=== PATIENT | female | born 1970 | race Caucasian/White ===

== ENCOUNTER → 2016-09-08 | Outpatient (CLI) | payer OTHER | LOC: FIMAGING 12:14 | PROVIDERS: ATTEND Physician Assistant | DX: M51.34 Other intervertebral disc degeneration, thoracic region (principal); Z85.3 Personal history of malignant neoplasm of breast ==

== ENCOUNTER → 2016-11-14 | Outpatient (CLI) | payer OTHER ==
[~2016-11-14] MED LIST: IOPAMIDOL (ISOVUE-300) 100 ML BTL ONE
== END ==
LOC: FIMAGING 09:24
PROVIDERS: ATTEND Obstetrics & Gynecology
DX: N83.8 Other noninflammatory disorders of ovary, fallopian tube and broad ligament (principal); N83.201 Unspecified ovarian cyst, right side; N85.2 Hypertrophy of uterus; D25.9 Leiomyoma of uterus, unspecified; Z90.11 Acquired absence of right breast and nipple; Z90.12 Acquired absence of left breast and nipple; Z85.3 Personal history of malignant neoplasm of breast
CPT/HCPCS: Q9967

== ENCOUNTER 2016-11-20 10:16 | Day surgery (SDC) | payer OTHER ==
[2016-11-20] MEDS ORDERED: LR 1,000 ML IV ONE (10:35)
[2016-11-20 10:56] VITALS: PULSE 84
--- NOTE | 2016-11-20 11:35 | PDANEPAE ---
ANE History of Present Illness R/O colon ca ANE Past Medical History - Cardiovascular History Hx Hypertension: No Hx Arrhythmias: No Hx Chest Pain: No Hx Coronary Artery / Peripheral Vascular Disease: No Hx CHF / Valvular Disease: No Hx Palpitations: No - Pulmonary History Hx COPD: No Hx Asthma/Reactive Airway Disease: No Hx Recent Upper Respiratory Infection: No Hx Oxygen in Use at Home: No Hx Sleep Apnea: No Sleep Apnea Screening Result - Last Documented: Negative - Neurologic History Hx Cerebrovascular Accident: No Hx Seizures: No Hx Dementia: No - Endocrine History Hx Diabetes: Yes Endocrine History Comment: LOW THYROID - Renal History Hx Renal Disorders: No - Liver History Hx Hepatic Disorders: No - Neurological & Psychiatric Hx Hx Neurological and Psychiatric Disorders: No - Cancer History Hx Cancer: Yes Cancer History Comment: BREAST CA - Congenital Disorder History Hx Congenital Disorders: No - GI History Hx Gastrointestinal Disorders: No - Other Health History Other Health History: NEG - Chronic Pain History Chronic Pain: No - Surgical History Prior Surgeries: MASTECTOMY TARA. RECONSTRUCTIVE X3. SHOULDER R ANE Review of Systems - Exercise capacity METS (RN): 5 METS ANE Patient History - Allergies Allergies/Adverse Reactions: No Known Allergies Allergy (Unverified 06/11/09 20:48) - Home Medications Home Medications: Herbals/Supplements -Info Only 11/18/16 [Last Taken Unknown] - NPO status NPO Since - Liquids (Date): 11/20/16 NPO Since - Liquids (Time): 09:45 NPO Since - Solids (Date): 11/19/16 NPO Since - Solids (Time): 07:30 - Smoking Hx Smoking Status: Never smoked - Family Anes Hx Family Hx Anesthesia Complications: NEG ANE Labs/Vital Signs - Vital Signs Blood Pressure: 131/74 Heart Rate: 84 Respiratory Rate: 13 O2 Sat (%): 97 Height: 162.56 cm Weight: 56.245 kg ANE Physical Exam - Airway Neck exam: FROM Mallampati Score: Class 1 Mouth exam: normal dental/mouth exam - Pulmonary Pulmonary: no respiratory distress - Cardiovascular Cardiovascular: regular rate and rhythym - ASA Status ASA Status: I ANE Anesthesia Plan Anesthesia Plan: MAC
[2016-11-20] MEDS ORDERED: MIDAZOLAM 2 MG/2 ML VIAL IVP ONE (11:36)
[2016-11-20] MEDS ORDERED: LIDOCAINE 2% 5 ML SDV ONE (11:40)
[2016-11-20] MEDS ORDERED: PROPOFOL/EMULSION 500 MG/50 ML BOTTLE IV ONE (11:40)
[2016-11-20] MEDS ORDERED: INDOMETHACIN 50 MG SUPP PR PRN (12:38)
--- NOTE | 2016-11-20 12:38 | PDGENHP ---
History & Physical Chief Complaint: epigastric abdominal pain, family history of cancer History of Present Illness: 46 year old female with a family history of cancers , presents for evaluatio of abnormal imaging and epigastric abdominal pain. Pertinent Past, Social, Family History: PMHx: Breast cancer, hypothyroid. SoHx : No cigs. FaMHx: extensive list of cancers Relevant Physical Exam: HEENT: anicteric sclera. CV: RRR + s1s2. Lungs CTAB. Abd: soft, nt, + bs. No g/r/ Cardiorespiratory Assessment: asa 2
[2016-11-20] MEDS ORDERED: fentaNYL 100 MCG/2 ML INJ IVP PRN (12:41)
[2016-11-20] MEDS ORDERED: ONDANSETRON 4 MG/2 ML VIAL IVP PRN (12:41)
[2016-11-20] MEDS ORDERED: NALOXONE HCL 0.4 MG/ML INJ IVP PRN (12:41)
--- NOTE | 2016-11-20 12:41 | POSTOPPROG ---
Post Op Note Date of Operation: 11/20/16 Surgeon: Andrea Dacosta Anesthesia: IV Sedation Pre-op Diagnosis: epigstric pain, abnormal imaging Post-op Diagnosis: + gastritis, nl colon Indication: epi pain, abnormal imaging Procedure: EGd with bx, colonoscopy Findings: gastritis, hh Inf/Abcess present in the surg proc area at time of surgery?: No
--- NOTE | 2016-11-20 12:42 | POSTANESTH ---
Post Anesthetic Evaluation Cardiovascular Status: Normal, Stable Respiratory Status: Normal, Stable Level of Consciousness/Mental Status: Can Participate in Eval Pain Control: Adequate, Prn Tx Ordered Nausea/Vomiting Control: Adequate, Prn Tx Ordered Complications Possibly Related to Anesthesia: None Noted
[2016-11-20] MEDS ORDERED: NS 500 ML IV SCH (12:45)
[2016-11-20 12:47] VITALS: TEMP 97.7; O2SAT 100
[2016-11-20 13:14] VITALS: RESP 15
[2016-11-20 13:39] VITALS: BP 121/69
--- NOTE | 2016-11-20 22:43 | GPN ---
[f rep st] PROCEDURE NOTE DATE OF PROCEDURE: 11/20/2016 PROCEDURE PERFORMED: Esophagogastroduodenoscopy with biopsy. OPERATIVE INDICATIONS: Ms. Burris is a 46-year-old female, who presents for evaluation of epigastric abdominal pain. CONSENT: Risks, benefits, and alternatives of the procedure were discussed in great detail with the patient. Risks of infection, bleeding, perforation, and sedation were discussed. All questions were answered. Informed consent was obtained. MEDICATIONS: Propofol. Please see Anesthesiology record for details. ESTIMATED BLOOD LOSS: Insignificant. DESCRIPTION OF PROCEDURE: The Olympus upper endoscope was inserted into the mouth and advanced to the esophagus. The proximal, mid and distal esophagus were normal in appearance. The stomach was entered and closely examined, including retroflexed views of angularis, cardia and fundus. A small hiatal hernia was visualized. The mucosa in the antrum and the body of the stomach were erythematous in a patchy distribution and biopsies were taken. The duodenal bulb and second portion of the duodenum was normal in appearance. IMPRESSION: 1. Gastritis, status post biopsy. 2. Small hiatal hernia. 3. No etiology of symptoms seen. RECOMMENDATIONS: 1. Follow up on biopsy results. 2. Proceed with colonoscopy. /[id number]/MODL MTDD
--- NOTE | 2016-11-20 22:48 | GPN ---
[f rep st] PROCEDURE NOTE DATE OF PROCEDURE: 11/20/2016 PROCEDURE: Colonoscopy. INDICATION: The patient is a 46-year-old female, with an extensive family history of multiple cancers, who presents for evaluation of abnormal imaging. CONSENT: Risks, benefits, and alternatives of the procedure were discussed in great detail with the patient. Risks of infection, bleeding, perforation, and sedation were discussed. All questions answered. Informed consent was obtained. MEDICATIONS: Propofol. Please see Anesthesia record for details. ESTIMATED BLOOD LOSS: Insignificant. COLONOSCOPIC EVALUATION: A rectal exam was performed and no palpable masses were appreciated. The Olympus adult colonoscope was inserted into the rectum and advanced to cecum where the ileocecal valve and appendiceal orifice were seen. Fleeting views of the terminal ileum were visualized and no gross lesion noted. No mass or polyps were noted. IMPRESSION: Normal colonoscopy. RECOMMENDATIONS: Repeat colonoscopy in 5 years. /[id number]/MODL MTDD
== END 2016-11-20 14:00 | disposition home or self-care (01) ==
LOC: FSGY 10:16
PROVIDERS: ATTEND Internal Medicine Gastroenterology
PROC: 0DB68ZX Excision of Stomach, Via Natural or Artificial Opening Endoscopic, Diagnostic (ICD-10-PCS; principal; 2016-11-20 11:30)
PROC: 0DJD8ZZ Inspection of Lower Intestinal Tract, Via Natural or Artificial Opening Endoscopic (ICD-10-PCS; principal; 2016-11-20 11:30)
DX: R10.13 Epigastric pain (principal); R93.8 Abnormal findings on diagnostic imaging of other specified body structures; E03.9 Hypothyroidism, unspecified; K44.9 Diaphragmatic hernia without obstruction or gangrene; Z85.3 Personal history of malignant neoplasm of breast; Z80.9 Family history of malignant neoplasm, unspecified
CPT/HCPCS: J2250; J2704

== ENCOUNTER → 2017-01-22 | Outpatient (CLI) | payer OTHER | LOC: EDSTATUS 11:35 → FIMAGING 12:50 → FLAB 12:50 | PROVIDERS: ATTEND Surgery | DX: Z48.812 Encounter for surgical aftercare following surgery on the circulatory system (principal) ==

== ENCOUNTER → 2017-06-12 | Outpatient (CLI) | payer OTHER | LOC: FIMAGING 10:15 | PROVIDERS: ATTEND Internal Medicine Hematology & Oncology | DX: Z13.820 Encounter for screening for osteoporosis (principal); M85.89 Other specified disorders of bone density and structure, multiple sites; C50.412 Malignant neoplasm of upper-outer quadrant of left female breast ==

== ENCOUNTER 2018-06-12 13:12 | Observation (INO) | payer OTHER ==
[2018-06-12] MEDS ORDERED: NS 1,000 ML IV ONE ×2 (13:35→15:44)
--- NOTE | 2018-06-12 13:37 | EDPHY ---
H & P Smoking Status: Never smoked Time Seen by Provider: 06/12/18 13:20 HPI/ROS: CHIEF COMPLAINT: Abdominal pain HISTORY OF PRESENT ILLNESS: History of metastatic breast cancer including bilateral oophorectomy for metastases. Started with abdominal pain in her umbilical region on Wednesday and Wednesday and then on Wednesday and was pretty much gone. Wednesday afternoon she had her latest cancer therapy infusion. At 4:00 a.m. On this past Wednesday pain got worse and yesterday at dinner it was worse with trying to eat or drink soup for dinner. Last night when she rolled over in bed every time she changed position it was worse. She presents today with continued worsening severe pain. Not associated with vomiting or diarrhea, decreased stool output. No fever or chills and no recent injury or trauma. REVIEW OF SYSTEMS: Eye: no change in vision ENT: no sore throat Cardiac: no chest pain or syncope Pulmonary: no cough or SOB Abdomen: HPI Musculoskeletal: no back pain Skin: no rash Neuro: no headache Constitutional: no fever : no urinary symptoms A comprehensive 10 point review of systems is otherwise negative aside from elements mentioned in the history of present illness. PAST MEDICAL HISTORY: Metastatic breast cancer, bilateral oophorectomy, mastectomy, hypothyroid Social history: Nonsmoker General Appearance: Alert and conversant, cooperative. Eyes: No scleral icterus. ENT, Mouth: Slightly dry mucous membranes. Respiratory: Normal respiratory effort, breath sounds equal, lungs are clear to auscultation. Cardiovascular: Regular rate and rhythm. Gastrointestinal: Bilateral lower abdominal tenderness right greater than left. Neurological: Alert, face symmetric, normal motor and sensory in extremities. Skin: Warm and dry, no rashes. Musculoskeletal: No peripheral edema. Psychiatric: Not agitated. Emergency Department course/MDM: Differential includes but not limited to bowel obstruction, cancer related, appendicitis, uterine. 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 CT scanning discussed and consented. Declined pain medication initially 1450: CT per Dr. Salvador shows thickened sigmoid as well as 8 mm appendix with debris, possible appendicitis. Patient is requesting Dr. Walters if he is available as he has been her surgeon in the past, discussed with Romeo at 1457 will see in ED. (Saman Mckeon) Constitutional: Initial Vital Signs Temperature (C) 36.8 C 06/12/18 13:16 Heart Rate 90 02/10/19 13:16 Respiratory Rate 16 06/12/18 13:16 Blood Pressure 120/87 H 06/12/18 13:16 O2 Sat (%) 97 06/12/18 13:16 O2 Delivery Mode Room Air Allergies/Adverse Reactions: No Known Allergies Allergy (Verified 06/12/18 18:04) Home Medications: Medication Instructions Recorded Herbals/Supplements -Info Only 1 ea PO DAILY #0 11/18/16 Exemestane [Aromasin] 25 mg PO DAILY 06/12/18 Fluorometholone [Fml Forte] 1 drop OP QID 06/12/18 Thyroid,Pork [Gaston Thyroid] 30 mg PO DAILY 06/12/18 Amoxicillin/Clavulanate Pot 875 mg PO BID #10 tab 06/13/18 [Augmentin 875 MG TAB (*)] Meloxicam 7.5 mg PO DAILY #30 tablet 06/13/18 Medical Decision Making - Diagnostics Imaging: Discussed imaging studies w/ call center team leader Radiologist ED Course/Re-evaluation: 5:15 p.m., the patient was seen and evaluated by Dr. Walters who reviewed CT imaging. Dr. Walters does not feel the patient has an appendicitis. However, Dr. Waltesr will admit the patient for pain control and observation overnight. ( Pato Huang) - Data Points Laboratory Results: Laboratory Results 06/12/18 13:45 06/12/18 13:45 Medications Given: Discontinued Medications Exemestane (Aromasin) 25 mg PO DAILY [facility] Stop: 12/10/18 08:59 Last Admin: 06/13/18 09:11 Dose: 25 mg Fluorometholone (Fml) 1 drop OP QID ROSA MARIA Stop: 12/09/18 20:59 Last Admin: 06/13/18 05:23 Dose: Not Given Sodium Chloride (Ns) 1,000 mls @ 0 mls/hr IV EDNOW ONE; Wide Open PRN Reason: Protocol Stop: 06/12/18 13:36 Last Admin: 06/12/18 14:37 Dose: 1,000 mls Sodium Chloride (Ns) 1,000 mls @ 0 mls/hr IV ONCE ONE; Wide Open PRN Reason: Protocol Stop: 06/12/18 15:45 Last Admin: 06/12/18 15:46 Dose: 1,000 mls Cefoxitin Sodium 1 gm/ Sodium (Chloride) 50 mls @ 200 mls/hr IV EDNOW ONE PRN Reason: Protocol Stop: 06/12/18 18:24 Last Admin: 06/12/18 19:08 Dose: 50 mls Cefoxitin Sodium 1 gm/ Sodium (Chloride) 50 mls @ 200 mls/hr IV Q6H ORSA MARIA PRN Reason: Protocol Stop: 07/13/18 00:59 Last Admin: 06/13/18 07:14 Dose: 50 mls Potassium Chloride/Dextrose/Sod Cl (D5w 1/2 Ns W/ 20 Kcl/L) 1,000 mls @ 100 mls /hr IV CONT ROSA MARIA Stop: 12/09/18 18:14 Last Admin: 06/13/18 05:23 Dose: 1,000 mls Potassium Chloride (Potassium Cl 10 Meq (Premix)) 100 mls @ 100 mls/hr IV Q1H ROSA MARIA Stop: 06/12/18 22:29 Last Admin: 06/12/18 23:42 Dose: 100 mls Ketorolac Tromethamine (Toradol) 30 mg IVP EDNOW ONE Stop: 06/12/18 16:55 Last Admin: 06/12/18 16:58 Dose: 30 mg Ketorolac Tromethamine (Toradol) 15 mg IVP Q6HRS ROSA MARIA Stop: 06/18/18 00:00 Last Admin: 06/13/18 05:24 Dose: 15 mg Point of Care Test Results: Chemistry 06/12/18 13:50 POC Sodium 140 mEq/L mEq/L (135-145) POC Potassium 3.3 mEq/L mEq/L (3.3-5.0) POC Chloride 100 mEq/L mEq/L (97-110) POC Total CO2 24 mEq/L mEq/L (22-31) POC BUN 14 mg/dL mg/dL (7-23) POC Creatinine 0.6 mg/dL mg/dL (0.6-1.0) POC Glucose 96 mg/dL mg/dL (70-100) ISTAT H&H 06/12/18 13:50 POC Hgb 14.3 gm/dL gm/dL (12.6-16.3) POC Hct 42 % % (38-47) Departure - Departure Disposition: [facility] Acute Clinical Impression: Abdominal pain Qualifiers: Abdominal location: lower abdomen, unspecified Qualified Code(s): R10.30 - Lower abdominal pain, unspecified Condition: Fair
[2018-06-12] MEDS ORDERED: IOHEXOL 300 mgI/ML (OMNIPAQUE) 150 ML BTL IV ONE (13:56)
[2018-06-12 14:09] LABS: PLATELET COUNT 60 10^3/uL (150-400)
[2018-06-12] MEDS ORDERED: KETOROLAC 30 MG/1 ML SDV IVP ONE (16:54)
[2018-06-12] MEDS ORDERED: ONDANSETRON 4 MG/2 ML VIAL IVP PRN (18:08)
[2018-06-12] MEDS ORDERED: LORazepam 2 MG/ML INJ IVP PRN (18:08)
[2018-06-12] MEDS ORDERED: HYDROmorphONE/DILAUDID 1 MG/ML INJ IVP PRN (18:08)
[2018-06-12] MEDS ORDERED: HYDROCODONE/APAP 5/325 TAB PO PRN (18:08)
[2018-06-12] MEDS ORDERED: cefOXitin SODIUM 1 GM in NS 50 ML IV ONE (18:10)
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
[2018-06-12] MEDS: POTASSIUM Cl (KCl) 100 ML IV SCH ×4 (19:57→23:42)
[2018-06-12] MEDS: D5W 1/2 NS W/ 20 KCl/L 1,000 ML IV SCH (19:58)
[2018-06-12] MEDS: FLUOROMETHOLONE 5 ML OPHT.BTL OP SCH (19:58)
--- NOTE | 2018-06-12 20:14 | GHP ---
[f rep st] HISTORY AND PHYSICAL DATE OF ADMISSION: 06/12/2018 REASON FOR CONSULTATION: History of metastatic breast cancer with increasing abdominal pain. The patient is a very pleasant 48-year-old female with history of metastatic breast cancer who is now admitted with increasing abdominal pain. Her oncology history dates back to October of 2010, when she was diagnosed with a stage IIIC (T2p N3C M0) invasive lobular carcinoma of the left breast. The tumo r was ER DE positive and HER2 negative. She underwent neoadjuvant chemotherapy with dose dense AC Ta xol followed by mastectomy with axillary node dissection. Pathology showed a 1.2 cm lobular carcinom a with 12 of 20 lymph nodes involved. She underwent PMRT and started on tamoxifen in June. She regained ovarian function, and a trial of Lupron was attempted, but she tolerated that poorly . In the spring, she discontinued the tamoxifen due to side effects. At that time, she was found to have a cystic mass in her right pelvis. CT scan showed bilateral enlargement of the ovaries with a 4.5 cm mass arising from the right ovary. There was free peritoneal fluid. PET-CT demonstra latrell the pelvic mass to be PET avid with a 2 cm precaval node. She underwent surgery with gynecologic oncologist in October of 2016, Dr. Beckwith. She was found to have extensive tumor in the pelvis with c arcinomatosis. She had a cecal mesenteric mass. She underwent bilateral salpingo-oophorectomy. Pat hology was felt to be consistent with metastatic breast cancer of the lobular type ER and DE were bot h strongly positive. HER2 was 2+ and was positive by FISH in 1 part of the tumor and negative by FIS H and another area of the tumor. She initially was treated with Taxotere, Herceptin, and pertuzumab, and started on Herceptin and pertuzumab maintenance March 2017. By July of 2017, she had progre ssive disease based on rising tumor marker, and was started on a clinical trial at [facility] with Dr. Miller with letrozole, palbociclib, and tucatinib. She was found to have progressive disease in of this year based on CT findings and a PET-CT that showed new PET avid bilateral iliac chain lym ph nodes in the lower abdomen and pelvis. The most dominant lesion was in the right external iliac c inna, measuring 2.9 x 1.7 cm. There were new PET avid right common iliac chain nodes and a new right PET avid common iliac node. In addition, there were left pelvic nodes as well. No bony lesions wer e identified. She started on Aromasin in May and received her first dose of Kadcyla on June 07. B ecause of increasing right groin pain over the right pelvic lymph node, there was some consideration of either radiation or surgical resection to palliate symptoms. She met both with Dr. Lee, who di d not recommend radiation, and met with a surgeon at [facility], Dr. Jansen. Surgery was recommended only to address pain and over the course of the last week, the patient had decreasing pain in the rig ht groin. She was tentatively scheduled for surgical resection of the lymph node tomorrow, but had c anceled it due to decreased symptoms in that area. She received her 1st dose of Kadcyla 1 week ago. She started having abdominal cramping prior to the administration of the chemo. She has not had any vomiting. She has had bowel movements. She has gallagher d anorexia. She has had significant abdominal cramping, which she describes as spasms. She has not had any fevers or chills. She was referred to the emergency room today due to increasing abdominal p ain. PAST MEDICAL HISTORY: Infertility with numerous prior cycles of in vitro fertilization. 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 PAST SURGICAL HISTORY: Bilateral mastectomies with axillary node dissection, bilateral salpingo-ooph orectomy. FAMILY HISTORY: Paternal grandmother had breast cancer. Her father had stage IV lung cancer. A pat ernal uncle had prostate cancer. Her mother of metastatic ocular melanoma. There is no family history of ovarian cancer. SOCIAL HISTORY: She is . She has 1 son who is now 11. REVIEW OF SYSTEMS: 10-point review of systems is negative other than noted in HPI. PHYSICAL EXAM: GENERAL: She is relatively comfortable appearing, lying on a gurney. VITAL SIGNS: Blood pressure 119/75, heart rate 69, O2 sat 97%. She is afebrile. HEENT: Pupils equal. Sclerae a nicteric. Oropharynx clear. LUNGS: Clear to auscultation. HEART: Regular rate. ABDOMEN: Hypera ctive bowel sounds. Soft, no focal tenderness in the right lower quadrant. The right groin lymph no de is easily palpable, but not tender. She is tender to palpation in the mid abdomen bilaterally. T here is no rebound. EXTREMITIES: No edema. IMAGING: Abdominal CT shows a mildly distended appendix with adjacent inflammatory change. There is perihepatic and pericholecystic fluid with some mild adjacent inflammatory change in the hepatic fle xure of the colon. Minimal right pleural effusion. LABORATORY DATA: White blood cell count 4.5, hematocrit 42, platelets 60,000, absolute neutrophil co unt 2.5. IMPRESSION: This is a 48-year-old female with a history of stage IIIC lobular carcinoma, diagnosed w ith metastatic recurrence in December of 2016. The initial tumor was ER positive, HER2 negative, and t he abdominal recurrence was ER positive, both with HER2 positive and HER2 negative components. She w as initially treated with Taxotere, Herceptin, Perjeta, and then more recently was on a clinical tria l from June 2017 to May 2018 with letrozole, palbociclib, and oral HER2 agent tucatinib. She was found to have progressive disease last month and is currently day 7, cycle 1 of Kadcyla. She pr esents with increasing abdominal symptoms, and CT scan shows evidence of new perihepatic and perichol ecystic fluid, and some suggestion of inflammatory changes in the appendix. Also of note, she has so me inflammatory changes in the area of the hepatic flexure. Her exam is notable for not having focal tenderness in the right lower quadrant. She is afebrile. She does not have an elevated white count , albeit, she is currently day 7 of chemotherapy. She has a mild thrombocytopenia. There are no sig ns of obstruction. For now, the patient will be admitted for observation. She will be hydrated and started empirically on antibiotics. 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 It is too early at this point to say that she is resistant to her most recen t treatment. We will continue to follow along with you signed. /[id number]/MODL
[2018-06-12] MEDS: KETOROLAC 15 MG/1 ML SDV IVP SCH (23:41)
[2018-06-13] MEDS: cefOXitin SODIUM 1 GM in NS 50 ML IV SCH ×2 (01:17→07:14)
[2018-06-13] MEDS: FLUOROMETHOLONE 5 ML OPHT.BTL OP SCH (05:23)
[2018-06-13] MEDS: D5W 1/2 NS W/ 20 KCl/L 1,000 ML IV SCH (05:23)
[2018-06-13] MEDS: KETOROLAC 15 MG/1 ML SDV IVP SCH (05:24)
--- NOTE | 2018-06-13 08:45 | SOAPPROG ---
SOAP Progress Note Assessment/Plan: Assessment:better night. pain overall improved. no nausea. + appetite. AVSS. comfortable. abd markedly less tender. abd pain - etiology? neutropenic colits, less likely primary appy (?periappendicitis secondary to above or carcinomatosis still a possibility) vs carcinomatosis. WBC 3/plt 80 today. will plan for DC to home later today with PO ABX course and meloxicam. patient pleased with her progress and in agreement. will see back in office in 1 week unless pain worsens Plan: 06/13/18 08:42 Objective: Vital Signs Temp Pulse Resp BP Pulse Ox 37.0 C 70 16 103/66 94 06/13/18 02:56 06/13/18 02:56 06/13/18 02:56 06/13/18 02:56 06/13/18 02:56 Laboratory Results 06/13/18 08:15 06/12/18 06/13/18 06/14/18 05:59 05:59 05:59 Intake Total 3285 Balance 3285 ICD10 Worksheet Patient Problems: Problems Problem Status Onset Abdominal pain Acute
[2018-06-13 08:46] VITALS: BP 115/75
[2018-06-13] MEDS ORDERED: EXEMESTANE 25 MG TAB PO SCH (09:00)
--- NOTE | 2018-06-13 10:35 | SOAPPROG ---
SOZI Progress Note Assessment/Plan: Assessment: 1) Metastatic breast cancer 2) Metastatic involvement of pelvic lymph nodes 3) Abdominal pain of unclear etiology 4) Inflammatory abdominal changes seen on CT Plan: Her pain has improved significantly without intervention. She wants to go home. I have discussed her case with Dr. Walters, who is also comfortable with d/c today. Etiology of her pain remains somewhat unclear. She has no evidence of obstruction on CT, and no obstructive symptoms. It is possible she has early carcinomatosis. Will arrange outpatient follow up at [facility] later this week. 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 Plan to continue TDM1 treatment per her primary Oncologist, Dr. Cole. Plan d/w patient. Her questions were answered. 06/13/18 10:30 06/13/18 10:31 Subjective: Pain better. Denies nausea. Continues to move bowels. Feels ok enough to go home. Objective: Vital Signs Temp Pulse Resp BP Pulse Ox 36.4 C 73 16 115/75 96 06/13/18 08:00 06/13/18 08:00 06/13/18 08:00 06/13/18 08:00 06/13/18 08:00 Laboratory Results 06/13/18 08:15 06/13/18 09:15 06/12/18 06/13/18 06/14/18 05:59 05:59 05:59 Intake Total 3285 Balance 3285 - Time Spent With Patient Time Spent With Patient: 25 minutes Physical Exam - Physical Exam General Appearance: alert, no apparent distress EENT: PERRL/EOMI Abdomen: normal bowel sounds, non-tender, soft Neuro/Psych: alert, normal mood/affect ICD10 Worksheet Patient Problems: Problems Problem Status Onset Abdominal pain Acute
--- NOTE | 2018-06-13 15:18 | ASMTLACE ---
LACE Length of stay for Answers: 2 days current admission Acuity / Level of Answers: No Care: Did the patient have an inpatient admission? Comorbidities - select Answers: Any tumor (including all that apply lymphoma or leukemia) Other Notes: Hypothyroid # of Emergency department Answers: 1-2 visits in the last 6 months Score: 6 Date Signed: 06/13/2018 03:18 PM Electronically Signed By:NATALI Alcazar
--- NOTE | 2018-06-13 15:20 | ASMTCMCOM ---
CM Note CM Note Notes: Pt with breast CA in for abd pain. No therapies ordered. Pt medically stable for d/c, no CM d/c needs identified. Pt will d/c on oral antibiotics, will f/u at [facility] later this week. Date Signed: 06/13/2018 03:19 PM Electronically Signed By:NATALI Alcazar
== END 2018-06-13 11:05 | disposition home or self-care (01) ==
LOC: F3E 19:31
PROVIDERS: ADMIT Surgery; ATTEND Surgery
DX: R10.31 Right lower quadrant pain (principal); C78.6 Secondary malignant neoplasm of retroperitoneum and peritoneum; R93.89 Abnormal findings on diagnostic imaging of other specified body structures; E86.9 Volume depletion, unspecified; E87.6 Hypokalemia; E03.9 Hypothyroidism, unspecified; D69.6 Thrombocytopenia, unspecified; Z85.3 Personal history of malignant neoplasm of breast; Z92.21 Personal history of antineoplastic chemotherapy; Z90.722 Acquired absence of ovaries, bilateral; Z90.13 Acquired absence of bilateral breasts and nipples
CPT/HCPCS: 74177; 96361; 96365; 96375; 96376; 99285; G0378; 82435-PO; 82565-PO; 82947-PO; 84132-PO; 84295-PO; 84520-PO; 85014-ER; J0694; J1885; J3480; Q9967

== ENCOUNTER 2018-06-23 21:23 | Inpatient (IN) | payer OTHER ==
[2018-06-23] MEDS ORDERED: ONDANSETRON 4 MG/2 ML VIAL IVP ONE (21:39)
[2018-06-23] MEDS ORDERED: IOPAMIDOL (ISOVUE-300) 100 ML BTL ONE (21:42)
--- NOTE | 2018-06-23 22:20 | EDPHY ---
H & P Stated Complaint: Mid abd pain, Ca pt, seen 2 weeks ago for same thing, worsening pain Time Seen by Provider: 06/23/18 21:40 HPI/ROS: HPI The patient presents with worsening abdominal pain over the last 2 days. She has a history of metastatic breast cancer, currently on chemotherapy, with known carcinomatosis. She was admitted from June 12 to with abdominal pain of uncertain origin though likely related to neutropenic colitis given she improved with IV fluids and antibiotics. She had been doing well at home up until yesterday when she had mild pain in her right lower quadrant. It was present again today when she saw Dr. Walters in the clinic. However at about 4 to 6:00 p.m. the pain became much much worse. It was located in her upper abdomen and achy in nature. At about 7:15 p.m. She was able to eat dinner, however the pain became worse after this and she developed nausea. The pain is now quite severe. REVIEW OF SYSTEMS 10 systems were reviewed and negative with the exception of the elements mentioned in the history of present illness. PMHx: Metastatic breast cancer, known carcinomatosis Soc Hx: Here with her PHYSICAL General Appearance: Alert, no distress Eyes: Pupils equal and round no pallor or injection ENT, Mouth: Mucous membranes moist Respiratory: There are no retractions, lungs are clear to auscultation Cardiovascular: Regular rate and rhythm Gastrointestinal: Abdomen is mildly distended, tenderness in all quadrants most prominently in right upper and left upper,, no masses, bowel sounds diminished, there is a maculopapular erythematous rash throughout her abdomen Neurological: A&O, moves all extremities Skin: Warm and dry, no rashes Musculoskeletal: Neck is supple non tender Extremities: symmetrical, full range of motion Psychiatric: Patient is oriented X 3, there is no agitation Source: Patient, Old records Exam Limitations: No limitations - Personal History LMP (Females 10-55): Hysterectomy Current Tetanus Diphtheria and Acellular Pertussis (TDAP): Yes Tetanus Vaccine Date: 2007 - Medical/Surgical History Hx Asthma: No Hx Chronic Respiratory Disease: No Hx Diabetes: No Hx Cardiac Disease: No Hx Renal Disease: No Hx Cirrhosis: No Hx Alcoholism: No Hx HIV/AIDS: No Hx Splenectomy or Spleen Trauma: No Other PMH: breast CA, hypothyroid, double mastectomy, oopherectomy - Social History Smoking Status: Never smoked Constitutional: Initial Vital Signs Temperature (C) 36.9 C 06/23/18 21:31 Heart Rate 84 06/23/18 21:31 Respiratory Rate 17 06/23/18 21:31 Blood Pressure 123/89 H 06/23/18 21:31 O2 Sat (%) 97 06/23/18 21:31 O2 Delivery Mode Room Air Allergies/Adverse Reactions: No Known Allergies Allergy (Verified 06/23/18 21:30) Home Medications: Medication Instructions Recorded Herbals/Supplements -Info Only 1 ea PO DAILY #0 11/18/16 Exemestane [Aromasin] 25 mg PO DAILY 06/12/18 Fluorometholone [Fml Forte] 1 drop OP QID 06/12/18 Thyroid,Pork [Coulter Thyroid] 30 mg PO DAILY 06/12/18 Medical Decision Making - Diagnostics Imaging Results: Imaging Impressions Abdomen CT 06/23/18 21:40 Impression: 1. Interval development of abnormal fluid-distended loops of small bowel in the caudal pelvis, with one of the loops demonstrating a moderate amount of submucosal edema and associated with some interloop fluid, as well as mesenteric edema. The possibility of an early obstructive process associated with an internal hernia is mentioned. 2. Right external iliac lymphadenopathy. 3. Moderate constipation. 4. Fluid-distended stomach. The patient may benefit from placement of an NG tube. Findings were discussed with Zach Walters M.D., who will discuss this further with Anita Herr MD at 22:49, on 06/23/2018. Differential Diagnosis: This is a 48-year-old female with known metastatic breast cancer with carcinomatosis, recent admit for abdominal pain thought to be neutropenic colitis given improvement with IV fluids and antibiotics, who now presents with worsening abdominal pain over the last 2 days. Here, patient is given IV fluids, Zofran, Toradol. Labs were checked. CT scan of abdomen pelvis was ordered. I discussed the case with Dr. Walters who had reviewed the patient's CT scan with Dr. Mendenhall. Patient appears to have a partial small-bowel obstruction, cause unclear. He recommends 18 Jordanian NG tube, IV fluids, admission to the hospital. I have ordered a hospital bed for the patient. I have given her a dose of fentanyl for pain. And I have explained the diagnosis and treatment plan to the patient. She would like not to have a KUB to confirm NG tube placement because of the multiple x-rays she is had. I feel this is reasonable. - Data Points Laboratory Results: 06/23/18 21:59 POC Hgb 16.0 gm/dL gm/dL (12.6-16.3) POC Hct 47 % % (38-47) POC Sodium 141 mEq/L mEq/L (135-145) POC Potassium 3.5 mEq/L mEq/L (3.3-5.0) POC Chloride 101 mEq/L mEq/L (97-110) POC Total CO2 28 mEq/L mEq/L (22-31) POC BUN 18 mg/dL mg/dL (7-23) POC Creatinine 0.7 mg/dL mg/dL (0.6-1.0) POC Glucose 87 mg/dL mg/dL (70-100) Medications Given: Discontinued Medications Fentanyl (Sublimaze) 50 mcg IVP EDNOW ONE Stop: 06/23/18 22:50 Last Admin: 06/23/18 22:54 Dose: 50 mcg Sodium Chloride (Ns) 1,000 mls @ 0 mls/hr IV EDNOW ONE; Wide Open PRN Reason: Protocol Stop: 06/23/18 22:26 Last Admin: 06/23/18 22:29 Dose: 1,000 mls Ketorolac Tromethamine (Toradol) 15 mg IVP EDNOW ONE Stop: 06/23/18 22:26 Last Admin: 06/23/18 22:29 Dose: 15 mg Ondansetron HCl (Zofran) 4 mg IVP EDNOW ONE Stop: 06/23/18 21:40 Last Admin: 06/23/18 21:59 Dose: 4 mg Point of Care Test Results: Chemistry 06/23/18 21:59 POC Sodium 141 mEq/L mEq/L (135-145) POC Potassium 3.5 mEq/L mEq/L (3.3-5.0) POC Chloride 101 mEq/L mEq/L (97-110) POC Total CO2 28 mEq/L mEq/L (22-31) POC BUN 18 mg/dL mg/dL (7-23) POC Creatinine 0.7 mg/dL mg/dL (0.6-1.0) POC Glucose 87 mg/dL mg/dL (70-100) ISTAT H&H 06/23/18 21:59 POC Hgb 16.0 gm/dL gm/dL (12.6-16.3) POC Hct 47 % % (38-47) Departure - Departure Disposition: [facility] Inpatient Acute Clinical Impression: Acute distention of stomach, Metastatic breast cancer Abdominal pain Qualifiers: Abdominal location: generalized Qualified Code(s): R10.84 - Generalized abdominal pain Condition: Fair
[2018-06-23] MEDS ORDERED: NS 1,000 ML IV ONE ×2 (22:25→23:02)
[2018-06-23] MEDS ORDERED: KETOROLAC 15 MG/1 ML SDV IVP ONE (22:25)
[2018-06-23] MEDS ORDERED: fentaNYL 100 MCG/2 ML INJ IVP ONE (22:49)
[2018-06-23] MEDS ORDERED: ONDANSETRON 4 MG/2 ML VIAL IVP PRN (22:54)
[2018-06-23] MEDS ORDERED: LORazepam 2 MG/ML INJ IM PRN (22:56)
[2018-06-23 23:11] LABS: PLATELET COUNT 201 10^3/uL (150-400)
[2018-06-24] MEDS: LR 1,000 ML IV SCH ×2 (00:06→16:28)
[2018-06-24] MEDS: HYDROmorphONE/DILAUDID 1 MG/ML INJ IVP PRN ×2 (02:54→09:24)
[2018-06-24] MEDS: KETOROLAC 15 MG/1 ML SDV IVP SCH ×4 (03:33→22:48)
--- NOTE | 2018-06-24 08:26 | PDMN ---
Medical Necessity Medical necessity: MCG M210 intestinal obstruction 2 days: - 48 yr F with worsening abd pain X 2 days - partial SBO req NG tube- CT shows early obstructive process associated with an internal hernia - NG tube paced PMHx: met. Br Ca. currently on Chemo, with known carcinomatosis.
--- NOTE | 2018-06-24 13:32 | SOAPPROG ---
SOAP Progress Note Assessment/Plan: Assessment:48yr female admitted with SBO - query carcinomatosis vs less likely adhesive. Full dictation to follow. Plan: 06/24/18 13:31 Objective: Vital Signs Temp Pulse Resp BP Pulse Ox 36.9 C 87 14 97/52 L 92 06/24/18 11:46 06/24/18 11:46 06/24/18 11:46 06/24/18 11:46 06/24/18 11:46 Laboratory Results 06/23/18 23:00 06/23/18 06/24/18 06/25/18 05:59 05:59 05:59 Intake Total 1350 Balance 1350 ICD10 Worksheet Patient Problems: Problems Problem Status Onset Abdominal pain Acute Acute distention of stomach Acute Metastatic breast cancer Acute
[2018-06-24] MEDS ORDERED: LIDOCAINE 2% JELLY 6 ML TOPICAL SYR TP ONE (15:15)
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
[2018-06-24] MEDS ORDERED: LORazepam 2 MG/ML INJ IV PRN (16:41)
--- NOTE | 2018-06-24 20:56 | PDCONSULT ---
It Systems Analyst Note: Patient is a 48-year-old female with metastatic breast cancer with known peritoneal metastasis who is admitted for a distal small bowel obstruction. Patient initially presented with a palpable mass in the left supraclavicular/ left cervical area as well as left breast in October 2010. Biopsy of both the breast and the lymph node revealed carcinoma with lobular and ductal features. Tumor was ER OK positive HER-2 negative PET/CT scan showed left axillary adenopathy left infraclavicular adenopathy as well as a right adnexal lesion. Pelvic ultrasound and CT of the pelvis were unremarkable. She is felt to have either stage IIIc or a legal metastatic stage IV disease depending on how the left upper chest/lower cervical lymph node was characterized. She got neoadjuvant chemotherapy with dose dense AC plus Taxol and bilateral mastectomies in April 2011 with left axillary dissection. Pathology showed invasive lobular carcinoma on the left 12 of 20 lymph nodes were involved she received postmastectomy radiation therapy to the left chest left supraclavicular infraclavicular region and internal mammary region and high left supraclavicular and axillary region. She was started on tamoxifen in June 2011. She could not tolerate Lupron. 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 Given irregular menstruation patient had numerous evaluations finally leading to an ultrasound which showed a complex cyst in the right pelvis. PET/CT demonstrated that the pelvic mass was PET avid along with a satellite presumed to tumor nodule just to the left of the uterus. There was also a 2 cm precaval lymph node that was PET avid. She had debulking surgery on November 23, 2016. Intraoperative findings showed a tumor in the pelvis right greater than left lung with carcinomatosis of the anterior abdominal wall and pelvis with lesions measuring 3-4 mm throughout. Biopsies were taken and she had a bilateral salpingo-oophorectomy. Specimens were positive for metastatic breast cancer of lobular type. ER OK were positive HER- 2 was 2+ and was subsequently found to be amplified by FISH in one area of the tumor but not in another area of the tumor. She received docetaxel with Herceptin and project March 2017 she subsequently developed progressive disease in July 2017 she was then started on a trial of letrozole palbociclib and 2 creatinine. She was also found to have progressive disease May 2018. It was recommended that she go on Aromasin and Kadcyla for which she is having 1 dose of Kadcyla. Patient reports she felt poorly after the first dose of Kadcyla even before her infusion. She reported headaches stomach pain and lethargy. She developed cramping diffuse abdominal pain on 06/10/2018 and was subsequently evaluated CAT scan showed what appeared to be colitis as well as a full appendix she was admitted and placed on antibiotics subsequently felt better however yesterday she developed acute onset of right lower quadrant pain that woke her up the pain was cramping in nature and progressive. Associate with the pain she also had nausea without any vomiting. Patient has had difficulties with constipation but had a bowel movement may be a few days ago but has not been passing any gas. Call Dr. Walters's office who recommended she be evaluated in the emergency room. CT of the abdomen and pelvis on 06/23/2018 and ended up showing development of abnormal fluid distended loops of small bowel in the caudal pelvis with 10 loops demonstrating a moderate amount of submucosal edema associated with some interloop fluid as well as mesenteric edema. There is also some moderate constipation and a fluid distended stomach. An NG tube was placed however patient did not tolerate it and it was removed. Past Medical History: Metastatic Breast Cancer Past Surgical History: Double mastectomy Oophorectomy Social History: No history of alcohol drugs or tobacco. with two children Family History: Mother - ocular melanoma Father - lung cancer Review of systems: A complete 12 point review of systems obtained and found to be negative unless indicated in history of present illness Physical examination: Vital signs reviewed Temp Pulse Resp BP Pulse Ox 36.8 C 83 16 114/71 94 06/24/18 19:40 06/24/18 19:40 06/24/18 19:40 06/24/18 19:40 06/24/18 19:40 General: No acute distress nontoxic appearing female HEENT: Pupils equal round reactive to light no scleral icterus or conjunctival pallor is appreciated oral mucosa is moist without any evidence of oral pharyngeal lesions Neck: Supple Cardiovascular: Regular in rate and rhythm without rubs thrills gallops or murmurs Chest clear to auscultation percussion bilateral posterior lungs Abdomen: Soft diffusely tender mildly distended without rebound or guarding tympanic to percussion vague right inguinal lymph node palpated (deep palpation) Extremities: Warm well perfused 2+ dorsalis pedis and radial pulses bilaterally 06/23/18 23:00 06/23/18 21:45 Total Bilirubin 0.6 mg/dL (0.1-1.4) 06/23/18 21:45 AST 108 IU/L (14-46) H 06/23/18 21:45 ALT 93 IU/L (9-52) H 06/23/18 21:45 Lactate Dehydrogenase 748 IU/L (313-618) H 06/24/18 17:06 Generic Name Dose Route Start Last Admin Trade Name Mary PRN Reason Stop Dose Admin Hydromorphone HCl 0.5 mg 06/23/18 22:54 06/24/18 09:24 Dilaudid IVP 07/03/18 22:53 0.5 mg Q2 PRN Administration Pain, Severe Unable to Take PO Lactated Ringer's 1,000 mls @ 125 mls/hr 06/23/18 23:00 06/24/18 16:28 Lr IV 12/20/18 22:59 1,000 mls CONT ROSA MARIA Administration Ketorolac Tromethamine 15 mg 06/24/18 04:30 06/24/18 17:22 Toradol IVP 06/28/18 16:31 15 mg Q6H ROSA MARIA Administration Lorazepam 1 mg 06/24/18 16:41 06/24/18 19:57 Ativan Injection IV 12/20/18 22:55 1 mg Q4HRS PRN Administration Anxiety, Unable to Take PO Ondansetron HCl 4 mg 06/23/18 22:54 06/24/18 09:24 Zofran IVP 12/20/18 22:53 4 mg Q4HRS PRN Administration Nausea/Vomiting, Can't Take PO Discontinued Medications Generic Name Dose Route Start Last Admin Trade Name Mary PRN Reason Stop Dose Admin Fentanyl 50 mcg 06/23/18 22:49 06/23/18 22:54 Sublimaze IVP 06/23/18 22:50 50 mcg EDNOW ONE Administration Sodium Chloride 1,000 mls @ 0 mls/hr 06/23/18 22:25 06/23/18 22:29 Ns IV 06/23/18 22:26 1,000 mls EDNOW ONE Administration Protocol Wide Open Sodium Chloride 1,000 mls @ 0 mls/hr 06/23/18 23:02 06/23/18 23:17 Ns IV 06/23/18 23:03 1,000 mls EDNOW ONE Administration Protocol Wide Open Iopamidol Confirm 06/23/18 21:42 Isovue-300 Administered 06/23/18 21:43 Dose 100 ml .ROUTE .STK-MED ONE Ketorolac Tromethamine 15 mg 06/23/18 22:25 06/23/18 22:29 Toradol IVP 06/23/18 22:26 15 mg EDNOW ONE Administration Lidocaine 1 damon 06/24/18 15:15 06/24/18 20:50 Glydo TP 06/24/18 15:16 1 damon ONCE ONE Administration Lorazepam 1 mg 06/23/18 22:56 06/24/18 03:41 Ativan Injection IM 12/20/18 22:55 1 mg Q4HRS PRN Administration Anxiety, Unable to Take PO Ondansetron HCl 4 mg 06/23/18 21:39 06/23/18 21:59 Zofran IVP 06/23/18 21:40 4 mg EDNOW ONE Administration Patient is a 48-year-old female with estrogen receptor progesterone receptor positive HER-2 equivocal metastatic breast cancer with known peritoneal carcinomatosis admitted for small bowel obstruction. Problem #1distal small bowel obstruction Given she has known peritoneal carcinomatosis and seems most likely that her obstruction is malignant in nature. Seems to be supported by the imaging where the bowel is almost wrapped around a central area in the caudal pelvis. If this is in fact malignant peritoneal carcinomatosis clearly surgery would not benefit the patient and could do harm. Agree with conservative management with NG tube n.p.o. with bowel rest. Problem #2 metastatic ER OK positive HER-2 equivocal breast cancer Patient is currently on Aromasin and Kadcyla. She is only received 1 dose of Kadcyla. Patient is convinced that anti-HER-2 therapies will not be beneficial in her given her relatively short duration of therapy with project and Herceptin. There is also the issue that her primary tumor was HER-2 negative and yet her metastatic lesion was variably HER-2 positive. Regardless seems to early to make any assumptions about the efficacy of Aromasin and Kadcyla. Patient will continue Aromasin when able to take p.o. and Kadcyla as an outpatient. This is felt to be malignant carcinomatosis perhaps she may benefit from a brief treatment interval with chemotherapy to debulk the disease. We will continue to follow with the patient
[2018-06-24] MEDS ORDERED: PHENOL 177 ML THROAT SPRAY PO PRN (22:24)
[2018-06-25] MEDS: KETOROLAC 15 MG/1 ML SDV IVP SCH ×3 (04:09→17:50)
[2018-06-25] MEDS: LR 1,000 ML IV SCH ×2 (04:10→09:53)
--- NOTE | 2018-06-25 08:30 | SOAPPROG ---
SOAP Progress Note Assessment/Plan: Assessment: NG placed yesterday and pulled overnight inadvertently. small flatus. no active nausea. mild pelvic discomfort. avss. comfortable. less distended. mild hypogastric tenderness. psbo - ?carcinomatosis vs less likely adhesive. KUB with less small bowel dilation today. gastrograffin study today. if passes, can try to adv diet with plans for dc tomorrow and resuming Kadcycla wednesday. repeat lytes today. care plans discussed extensively throughout day yesterday and today am. will hold off NG replacement at this time. Plan: 06/24/18 13:31 06/25/18 08:18 Objective: Vital Signs Temp Pulse Resp BP Pulse Ox 36.8 C 79 16 126/78 H 97 06/25/18 07:23 06/25/18 07:23 06/25/18 07:23 06/25/18 07:23 06/25/18 07:23 Laboratory Results 06/23/18 23:00 06/24/18 06/25/18 06/26/18 05:59 05:59 05:59 Intake Total 1350 1748 Output Total 50 Balance 1350 1697 ICD10 Worksheet Patient Problems: Problems Problem Status Onset Abdominal pain Acute Acute distention of stomach Acute Metastatic breast cancer Acute
[2018-06-25] MEDS ORDERED: EXEMESTANE 25 MG TAB PO SCH (09:00)
[2018-06-25] MEDS ORDERED: THYROID 60 MG TAB PO SCH (10:00)
[2018-06-25] MEDS ORDERED: NATURE THROID 32.5 MG PO SCH (10:15)
--- NOTE | 2018-06-25 11:33 | ASMTCMCOM ---
CM Note CM Note Notes: Pt with breast CA currently on chemo in for partial SBO. Onc consulting. NG tube was placed but pt did not tolerate. No therapies ordered. Pt was at [facility] and d/c indep 06/13/18 for abd pain. CM to follow pt progress for d/c planning. Date Signed: 06/25/2018 11:32 AM Electronically Signed By:NATALI Alcazar
--- NOTE | 2018-06-25 12:29 | SOAPPROG ---
SOZI Progress Note Assessment/Plan: Assessment: Heaven is a very pleasant 48-year-old with history of metastatic breast cancer who was admitted for partial small bowel obstruction. 1. 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 She currently is being managed conservatively. She does have a Gastrografin study pending today. Surgery is seeing her and are considering advancing diet either today or tomorrow. 2. Metastatic breast cancer, ER/IN positive, HER2 positive by FISH: She currently is receiving TDM1 in her 2nd cycle would be due on Wednesday. I will discuss with Dr. Cole regarding continuing current plan. 3. Abdominal pain: This is secondary to 1. 06/25/18 12:25 Subjective: Doing better this morning. She did attempt to have a bowel movement. She is passing some gas. She is tolerating small amounts of liquids. She has no emesis. Objective: Vital Signs Temp Pulse Resp BP Pulse Ox 36.7 C 86 16 132/86 H 100 06/25/18 10:53 06/25/18 10:53 06/25/18 10:53 06/25/18 10:53 06/25/18 10:53 Laboratory Results 06/23/18 23:00 06/24/18 06/25/18 06/26/18 05:59 05:59 05:59 Intake Total 1350 1748 Output Total 50 Balance 1350 1698 General: Pleasant-appearing female in no acute distress HEENT: Oropharynx is clear extra movements are intact Cardiovascular: Regular rate and rhythm no murmurs gallops or rubs Pulmonary: Clear to auscultation bilaterally Extremities: No cyanosis clubbing or edema Abdomen: Distended, tympanic, bowel sounds are present but diminished, slightly tender, no rebound Psych: Appropriate affect ICD10 Worksheet Patient Problems: Problems Problem Status Onset Abdominal pain Acute Acute distention of stomach Acute Metastatic breast cancer Acute
[2018-06-25 15:23] VITALS: BP 126/79
--- NOTE | 2018-06-25 18:32 | GDS ---
[f rep st] DISCHARGE SUMMARY REASON FOR ADMISSION: Small bowel obstruction. HOSPITAL COURSE: 48-year-old female with a significant history for metastatic breast cancer, with known carcinomatosis. She was readmitted on this admission with acute onset of abdominal pain with findings consistent with a small bowel obstruction with a transition point and mesenteric swelling within the pelvis. Differential diagnoses included suspect carcinomatosis versus less likely adhesions. She tolerated a nasogastric tube placement poorly. She did resolve with conservative measures, including bowel rest and fluid resuscitation. A Gastrografin study on the day of admission showed rapid colonic filling in under 2 hours followed by resumption of large bowel movement activity. She was discharged to home in improved condition. She is to resume all pre-hospital medications. She will follow up with [facility] on Wednesday to resume her next round of Kadcycla therapy. She will continue discussions with Drs. Cole and Paul regarding alternative chemotherapy options. She will follow up with Dr. Walters on an as-needed basis for ongoing GI questions or concerns. /[id number]/MODL MTDD
== END 2018-06-25 19:20 | disposition home or self-care (01) | DRG 375 ==
LOC: F1N 23:58
PROVIDERS: ADMIT Surgery; ATTEND Surgery
DX: C78.6 Secondary malignant neoplasm of retroperitoneum and peritoneum (principal); K56.699 Other intestinal obstruction unspecified as to partial versus complete obstruction; C77.3 Secondary and unspecified malignant neoplasm of axilla and upper limb lymph nodes; E03.9 Hypothyroidism, unspecified; Z85.3 Personal history of malignant neoplasm of breast; Z92.3 Personal history of irradiation; Z71.0 Person encountering health services to consult on behalf of another person
CPT/HCPCS: 82390-90; 82435-PO; 82565-PO; 82947-PO; 84132-PO; 84295-PO; 84520-PO; 85014-ER; 86300-90; 96374; J1170; J1885; J2060; J2405; J3010; Q9967

== ENCOUNTER → 2018-06-29 | Outpatient (CLI) | payer OTHER | LOC: FIMAGING 14:44 | PROVIDERS: ATTEND Surgery | DX: Z95.828 Presence of other vascular implants and grafts (principal) ==

== ENCOUNTER 2018-08-08 13:54 | Day surgery (SDC) | payer OTHER ==
[2018-08-08] MEDS ORDERED: LR 1,000 ML IV ONE (14:58)
[2018-08-08] MEDS ORDERED: INDOMETHACIN 50 MG SUPP PR PRN (16:48)
--- NOTE | 2018-08-08 16:48 | PDGENHP ---
History & Physical Chief Complaint: sbo History of Present Illness: 48 year old female present for evaluation of sbo with ti thickening Pertinent Past, Social, Family History: PMHx: stage 4 bc Relevant Physical Exam: HEENT anicteric. CV RRR +s1s2. Lungs CTAB. Abd: soft, nt, + bs Cardiorespiratory Assessment: ASA 2
[2018-08-08] MEDS ORDERED: NS 500 ML IV SCH (17:00)
[2018-08-08] MEDS ORDERED: PROPOFOL 200 MG/20 ML VIAL ONE ×2 (17:05)
[2018-08-08] MEDS ORDERED: ONDANSETRON 4 MG/2 ML VIAL IVP PRN (17:16)
[2018-08-08] MEDS ORDERED: fentaNYL 100 MCG/2 ML INJ IVP PRN (17:16)
[2018-08-08] MEDS ORDERED: ALBUTEROL 3 ML DEYVIAL IH PRN (17:16)
[2018-08-08] MEDS ORDERED: PROMETHAZINE HCL 25 MG/ML INJ IVP PRN (17:16)
[2018-08-08] MEDS ORDERED: NALOXONE HCL 0.4 MG/ML INJ IVP PRN (17:16)
[2018-08-08] MEDS ORDERED: oxyCODONE IR 5 MG TAB PO PRN (17:16)
[2018-08-08] MEDS ORDERED: HYDROmorphONE/DILAUDID 1 MG/ML INJ IVP PRN (17:16)
[2018-08-08] MEDS ORDERED: ACETAMINOPHEN 500 MG TAB PO PRN (17:16)
[2018-08-08] MEDS ORDERED: LR 500 ML IV PRN (17:16)
[2018-08-08] MEDS ORDERED: DIAZEPAM 5 MG/ML 1 ML SYR IVP PRN (17:16)
[2018-08-08] MEDS ORDERED: METOCLOPRAMIDE 10 MG/2 ML VIAL IVP PRN (17:16)
[2018-08-08] MEDS ORDERED: HYDROCODONE/APAP 5/325 TAB PO PRN (17:16)
--- NOTE | 2018-08-08 17:16 | POSTANESTH ---
Post Anesthetic Evaluation Cardiovascular Status: Normal, Stable Respiratory Status: Normal, Stable Level of Consciousness/Mental Status: Can Participate in Eval, Mildly Sleepy, Arousable Pain Control: Adequate, Prn Tx Ordered Nausea/Vomiting Control: Adequate, Prn Tx Ordered Complications Possibly Related to Anesthesia: None Noted
--- NOTE | 2018-08-08 17:16 | PDANEPAE ---
ANE History of Present Illness colonoscopy ANE Past Medical History - Cardiovascular History Hx Hypertension: No Hx Arrhythmias: No Hx Chest Pain: No Hx Coronary Artery / Peripheral Vascular Disease: No Hx CHF / Valvular Disease: No Hx Palpitations: No - Pulmonary History Hx COPD: No Hx Asthma/Reactive Airway Disease: No Hx Recent Upper Respiratory Infection: No Hx Oxygen in Use at Home: No Hx Sleep Apnea: No Sleep Apnea Screening Result - Last Documented: Negative - Neurologic History Hx Cerebrovascular Accident: No Hx Seizures: No Hx Dementia: No - Endocrine History Hx Diabetes: No Endocrine History Comment: hypothyroidism - Renal History Hx Renal Disorders: No - Liver History Hx Hepatic Disorders: No - Neurological & Psychiatric Hx Hx Neurological and Psychiatric Disorders: No - Cancer History Hx Cancer: Yes Cancer History Comment: BREAST CA with mets - Congenital Disorder History Hx Congenital Disorders: No - GI History Hx Gastrointestinal Disorders: Yes Gastrointestinal History Comment: chronic abd pain - Other Health History Other 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 2017 oophorectomy. bilateral mastectomies with Walters and reconstruction with Contreras. right shoulder scope- SLAP repair ANE Review of Systems Review of Systems: - Exercise capacity METS (RN): 4 METS ANE Patient History - Allergies Allergies/Adverse Reactions: No Known Allergies Allergy (Verified 08/05/18 09:57) - Home Medications Home medications: home medication list seen and reviewed Home Medications: Herbals/Supplements -Info Only #0 11/18/16 [Last Taken 08/07/18] Fluorometholone [Fml Forte] OP QID 06/12/18 [Last Taken 08/08/18] Cholecalciferol Vit D3 [Vitamin D3 (*)] 06/24/18 [Last Taken 08/07/18] Multivitamins [Multivitamin (*)] 06/24/18 [Last Taken 08/07/18] Nature-Throid 06/25/18 [Last Taken 08/08/18] - NPO status NPO Since - Liquids (Date): 08/08/18 NPO Since - Liquids (Time): 13:30 NPO Since - Solids (Date): 08/07/18 NPO Since - Solids (Time): 09:00 - Anes Hx Anes Hx: no prior problems - Smoking Hx Smoking Status: Never smoked - Family Anes Hx Family Hx Anesthesia Complications: none ANE Labs/Vital Signs - Vital Signs Blood Pressure: 125/72 Heart Rate: 72 Respiratory Rate: 20 O2 Sat (%): 100 Height: 160.02 cm Weight: 49.895 kg ANE Physical Exam - Airway Neck exam: FROM Mallampati Score: Class 1 Mouth exam: normal dental/mouth exam - Pulmonary Pulmonary: no respiratory distress - Cardiovascular Cardiovascular: regular rate and rhythym - ASA Status ASA Status: II ANE Anesthesia Plan Anesthesia Plan: GA with mask
--- NOTE | 2018-08-08 17:47 | GIREPORT ---
[facility] - Endoscopy Department Patient Name: Heaven Burris Procedure Date: 08/08/2018 4:37 PM Patient Type: Outpatient Attending MD/ ER Physician: Andrea Dacosta MD Procedure: Colonoscopy Indications: Abnormal CT of the GI tract Patient Profile: 48 year old female with metastatic breast cancer presents for evaluatio n of abnormal imaging (with ileal thickening) as well as recurrent episodes of small bowel obstructions. Providers: Andrea Dacosta MD Medicines: Monitored Anesthesia Care Complications: No immediate complications. Estimated blood loss: Minimal. Description of Procedure: After obtaining informed consent, the scope was passed under direct vis ion. Throughout the procedure, the patient's blood pressure, pulse, and oxyg en saturations were monitored continuously. The Colonoscope with irrigatio n channel was introduced through the anus and advanced to 30 cm into the ileum. The colonoscopy was performed without difficulty. The patient tolerated the procedure well. The quality of the bowel preparation was good. The terminal ileum, ileocecal valve, appendiceal orifice, and rectum we re photographed. Findings: The perianal and digital rectal examinations were normal. Pertinent negatives include no palpable rectal lesions. The entire examined colon appeared normal. The terminal ileum appeared normal. The scope was advanced 30cms into t he ileum. Biopsies were taken with a cold forceps for histology. Estimated Blood Loss: Estimated blood loss was minimal. Post Op Diagnosis: - The entire examined colon is normal. - The examined portion of the ileum was normal. Biopsied. - Etiology? No obvious inflammation seen. Await biopsy results. Conside r capsule endoscopy but worried will pill will get stuck versus trial of Entocort versus other? Recommendation: - Discharge patient to home (with escort). - The signs and symptoms of potential delayed complications were discus sed with the patient. - Patient has a contact number available for emergencies. - Return to normal activities tomorrow. - Resume previous diet. - Continue present medications. - Await pathology results. - Thank you for allowing me to participate in the care of your patient. Attending Participation: I personally performed the entire procedure. Andrea Dacosta MD Andrea Dacosta MD 08/08/2018 5:47:21 PM This report has been signed electronicallyAndrea Dacosta MD Number of Addenda: 0 Note Initiated On: 08/08/2018 4:37 PM Total Procedure Duration Time 0 hours 20 minutes 21 seconds [email or web address]
[2018-08-08 18:22] VITALS: BP 123/89
== END 2018-08-08 18:30 | disposition home or self-care (01) ==
LOC: FSGY 13:54
PROVIDERS: ATTEND Internal Medicine Gastroenterology
PROC: 0DBB8ZX Excision of Ileum, Via Natural or Artificial Opening Endoscopic, Diagnostic (ICD-10-PCS; principal; 2018-08-08 17:15)
PROC: 0DJD8ZZ Inspection of Lower Intestinal Tract, Via Natural or Artificial Opening Endoscopic (ICD-10-PCS; principal; 2018-08-08 17:15)
DX: R93.3 Abnormal findings on diagnostic imaging of other parts of digestive tract (principal); Z85.3 Personal history of malignant neoplasm of breast; Z90.13 Acquired absence of bilateral breasts and nipples; E03.9 Hypothyroidism, unspecified
CPT/HCPCS: J1642; J2704

== ENCOUNTER 2018-08-19 14:01 | Emergency (ER) | payer OTHER ==
[2018-08-19] MEDS ORDERED: NS 1,000 ML IV ONE (14:19)
--- NOTE | 2018-08-19 14:19 | EDPHY ---
H & P Stated Complaint: SOB CP starting last night Source: Patient Exam Limitations: No limitations - Personal History LMP (Females 10-55): Hysterectomy Current Tetanus/Diphtheria Vaccine: Yes Current Tetanus Diphtheria and Acellular Pertussis (TDAP): Yes Tetanus Vaccine Date: 2007 - Medical/Surgical History Hx Asthma: No Hx Chronic Respiratory Disease: No Hx Diabetes: No Hx Cardiac Disease: No Hx Renal Disease: No Hx Cirrhosis: No Hx Alcoholism: No Hx HIV/AIDS: No Hx Splenectomy or Spleen Trauma: No Other PMH: breast CA, hypothyroid, double mastectomy, oopherectomy - Social History Smoking Status: Never smoked Time Seen by Provider: 08/19/18 14:12 HPI/ROS: HPI: This is a 48-year-old female who presents with Chief Complaint: Shortness of breath, chest pain started last night Location: Anterior chest Quality: Dyspnea, sharp pain Duration: Last night Signs and Symptoms: + shortness of breath at rest, no shortness of breath on exertion, no cough, + chest pain, + palpitations, no lower extremity edema, no wheezing, no orthopnea, no paroxysmal nocturnal dyspnea, no fever, no injury/ trauma, no hemoptysis, no carpal pedal spasms Timing: Acute Severity: Moderate Context: Patient presents with complaints last night of anterior generalized chest discomfort accompanied by shortness of breath and a feeling that her heart was racing and irregular. She reports that she thought may be due to electrolyte imbalance and drank electrolyte and took potassium supplementation. This did not improve her symptoms. She reports now she does not have shortness of breath or feel that her heart is irregular. Patient reports that in the past she had been on the Keto diet head felt heart palpitations but this had improved when she changed her diet. Last chemotherapy session was last week. Her chemotherapy has been irregular as "my lab counts have been low." No recent long distance travel. No hormone supplementation. Nonsmoker. Modifying Factors: See above Comment: ROS: A comprehensive 10 system review of systems is otherwise negative aside from elements mentioned in the history of present illness. MEDICAL/SURGICAL/SOCIAL HISTORY: Medical history: Breast cancer last radiation 2011, hypothyroidism Surgical history: double mastectomy, oophorectomy Social history: Never smoked. CONSTITUTIONAL: Well-developed, well-nourished, tearful, nontoxic-appearing adult white female, awake and alert, no obvious distress HEENT: Atraumatic and normocephalic, PERRL, EOMI. Nares patent; no rhinorrhea; no nasal mucosal edema. Tympanic membranes clear. Oropharynx clear, no exudate and moist pink mucosa. Airway patent. No lymphadenopathy. No meningismus. Cardiovascular: Normal S1/S2, regular rate, regular rhythm, without murmur rub or gallop. PULMONARY/CHEST: Symmetrical and nontender. Mediport present right anterior chest. Clear to auscultation bilaterally. Good air movement. No accessory muscle usage. ABDOMEN: Soft, nondistended, nontender, no rebound, no guarding, no peritoneal signs, no masses or organomegaly. No CVAT. EXTREMITIES: 2/2 pulses, strength 5/5, no deformities, no clubbing, no cyanosis or edema. Negative Homans sign. NEUROLOGICAL: no focal neuro deficits. GCS 15. SKIN: Warm and dry, no erythema. no rash. Good capillary refill. (Leticia Nicole) Constitutional: Initial Vital Signs Temperature (C) 36.7 C 08/19/18 14:02 Heart Rate 75 08/19/18 14:02 Respiratory Rate 18 08/19/18 14:02 Blood Pressure 113/74 08/19/18 14:02 O2 Sat (%) 99 08/19/18 14:02 O2 Delivery Mode Room Air Allergies/Adverse Reactions: No Known Allergies Allergy (Verified 08/19/18 14:02) Home Medications: Medication Instructions Recorded Herbals/Supplements -Info Only #0 11/18/16 Fluorometholone [Fml Forte] OP QID 06/12/18 Cholecalciferol Vit D3 [Vitamin D3 06/24/18 (*)] Multivitamins [Multivitamin (*)] 06/24/18 Nature-Throid 06/25/18 Medical Decision Making ED Course/Re-evaluation: Vital signs reviewed and stable upon arrival. Placed on hall monitor. EKG, IV access, laboratory studies, CT chest ordered as high risk for pulmonary embolism given history of breast cancer 1500: Notified by [employer] that POC trop 0.00 1525: Laboratory studies reviewed. WBC 4 K, H&H /32, platelet count 75 K. No signs of JOSUE/electrolyte imbalance/acute coronary syndrome/CHF/coagulopathy. 1636: Called by radiologist, Dr. Colunga, who reports CTA chest shows no signs of pulmonary embolism no effusion, no dissection, no aortic aneurysm. Does show mild peribronchial thickening bilaterally and mild coronary arthrosclerosis. court monitor showed ectopic beats initially but since resolved with IV fluids. Patient will be referred to Cardiology for echocardiogram and Holter monitoring. Second troponin not indicated as pain has been present over 12 hr. HEART score= 2; low risk I reviewed the share decision making instrument with the patient, including risk of MACE, and the patient (and family) that are in agreement with the chosen disposition. This patient was seen under the supervision of my secondary supervising physician. I evaluated and cared for this patient with attending. (Leticia Nicole) Differential Diagnosis: Chest pain including but not limited to myocardial ischemia, pulmonary embolus, chest wall pain, pleural inflammation and pulmonary infectious causes. (Leticia Nicole) - Data Points Laboratory Results: Laboratory Results 08/19/18 14:40 08/19/18 14:40 Medications Given: Discontinued Medications Sodium Chloride (Ns) 1,000 mls @ 0 mls/hr IV EDNOW ONE; Wide Open PRN Reason: Protocol Stop: 08/19/18 14:20 Last Admin: 08/19/18 15:10 Dose: 1,000 mls Point of Care Test Results: Chemistry 08/19/18 14:52 POC Troponin I 0.00 ng/mL ng/mL (0.00-0.08) Departure - Departure Disposition: Home, Routine, Self-Care Clinical Impression: Thrombocytopenia, Heart palpitations Breast cancer in female Qualifiers: Breast location: unspecified site of breast Estrogen receptor status: unspecified Laterality: bilateral Qualified Code(s): C50.911 - Malignant neoplasm of unspecified site of right female breast; C50.912 - Malignant neoplasm of unspecified site of left female breast; C50.912 - Malignant neoplasm of unspecified site of left female breast; C50.912 - Malignant neoplasm of unspecified site of left female breast; C50.912 - Malignant neoplasm of unspecified site of left female breast Condition: Good Instructions: Heart Palpitations (ED) Additional Instructions: Please follow-up with [facility] for further evaluation and to determine candidacy for echocardiogram and Holter monitoring. Return to the ER immediately if you experience new, continued or worsened chest pain, chest pain that radiates, chest pain accompanied by exertion or associated with shortness of breath, sweating, nausea, dizziness, back pain, or any other symptoms that concern you. Referrals: Sneha Cole MD [Primary Care Provider] - As per Instructions Radha Luna MD [Medical Doctor] - As per Instructions
[2018-08-19 15:15] LABS: PLATELET COUNT 75 10^3/uL (150-400)
[2018-08-19 15:17] LABS: INR 1.03 (0.83-1.16); PROTIME(PATIENT) 13.1 SEC (12.0-15.0)
--- NOTE | 2018-08-19 15:29 | CPEKG ---
Test Reason : OPEN Blood Pressure : / mmHG Vent. Rate : 085 BPM Atrial Rate : 085 BPM P-R Int : 165 ms QRS Dur : 084 ms QT Int : 405 ms P-R-T Axes : 086 088 061 degrees QTc Int : 482 ms Sinus rhythm Confirmed by Keri Phillips ([id number]) on 08/19/2018 3:28:55 PM Referred By: KERI PHILLIPS Confirmed By:Keri Phillips
[2018-08-19] MEDS ORDERED: IOPAMIDOL (ISOVUE 370) 100 ML BTL IV ONE (15:36)
[2018-08-19 17:21] VITALS: BP 122/67
--- NOTE | 2018-08-23 08:32 | CPEKG ---
Test Reason : OPEN Blood Pressure : / mmHG Vent. Rate : 078 BPM Atrial Rate : 077 BPM P-R Int : 164 ms QRS Dur : 086 ms QT Int : 401 ms P-R-T Axes : 098 087 062 degrees QTc Int : 457 ms Sinus rhythm Confirmed by Jasper Paniagua ([id number]) on 08/23/2018 8:32:32 AM Referred By: KERI PHILLIPS Confirmed By:Jasepr Paniagua
== END 2018-08-19 17:19 | disposition home or self-care (01) ==
DX: D69.6 Thrombocytopenia, unspecified (principal); R00.2 Palpitations; C50.911 Malignant neoplasm of unspecified site of right female breast; C50.912 Malignant neoplasm of unspecified site of left female breast; E86.9 Volume depletion, unspecified
CPT/HCPCS: 84484-ER; J1642; Q9967

== ENCOUNTER → 2018-08-29 | Outpatient (CLI) | payer OTHER ==
[~2018-08-29] MED LIST changes: +GADOBUTROL 10 ML VIAL IVP ONE; +GLUCAGON HCL 0.3 MG in SYRINGE 0.3 ML IVP ONE; -IOPAMIDOL (ISOVUE-300) 100 ML BTL ONE
== END ==
LOC: FIMAGING 14:47
PROVIDERS: ATTEND Internal Medicine Gastroenterology
DX: R93.3 Abnormal findings on diagnostic imaging of other parts of digestive tract (principal)
CPT/HCPCS: A9585; J1610